=== PATIENT | female | born 1980 | race Caucasian/White ===

== ENCOUNTER 2017-05-08 15:22 | Emergency (ER) | payer SELFPAY ==
[~2017-05-08] VITALS: Ht 153.7 cm; Wt 65.9 kg
[2017-05-08 15:23] VITALS: BP 122/76; PULSE 124; RESP 19; TEMP 97.9; O2SAT 99
[2017-05-08 17:06] LABS: AUTOMATED NEUTROPHIL # 8.3 TH/MM3 (1.8-7.7); BASOPHIL # 0.1 TH/MM3 (0-0.2); BASOPHIL % 0.7 % (0.0-2.0); EOSINOPHIL % 0.3 % (0.0-4.0); HEMATOCRIT 38.7 % (35.0-46.0); HEMOGLOBIN 13.5 GM/DL (11.6-15.3); LYMPH % 3.3 % (9.0-44.0); LYMPHOCYTE # 0.3 TH/MM3 (1.0-4.8); MEAN CELL VOLUME 93.4 FL (80.0-100.0); MEAN CORPUSCULAR HEMOGLOBIN 32.6 PG (27.0-34.0); MEAN CORPUSCULAR HGB CONC 34.9 % (32.0-36.0); MEAN PLATELET VOLUME 8.3 FL (7.0-11.0); MONOCYTE # 0.8 TH/MM3 (0-0.9); NEUT % 87.7 % (16.0-70.0); PLATELET COUNT 159 TH/MM3 (150-450); RED BLOOD COUNT 4.14 MIL/MM3 (4.00-5.30); RED CELL DISTRIBUTION WIDTH 12.6 % (11.6-17.2); WHITE BLOOD COUNT 9.5 TH/MM3 (4.0-11.0)
[2017-05-08 17:22] LABS: ALBUMIN 3.4 GM/DL (3.4-5.0); ALT (GPT) 28 U/L (10-53); AST (GOT) 21 U/L (15-37); BICARBONATE 25.2 MEQ/L (21.0-32.0); BLOOD UREA NITROGEN 8 MG/DL (7-18); CALCIUM 7.9 MG/DL (8.5-10.1); CHLORIDE 103 MEQ/L (98-107); CREATININE 0.78 MG/DL (0.50-1.00); GLOMERULAR FILTRATION RATE 83 ML/MIN (>89); GLUCOSE,RANDOM 104 MG/DL (74-106); LIPASE 36 U/L (73-393); SODIUM (NA) 135 MEQ/L (136-145)
[2017-05-08 17:24] LABS: ALKALINE PHOSPHATASE 115 U/L (45-117); TOTAL BILIRUBIN ADULT 0.4 MG/DL (0.2-1.0); TOTAL PROTEIN 7.3 GM/DL (6.4-8.2)
[2017-05-08 17:37] LABS: BACTERIA, URINE FEW /hpf; BILIRUBIN, URINE NEG (NEG); BLOOD, URINE SMALL (NEG); GLUCOSE,URINE NEG (NEG); KETONE, URINE TRACE mg/dL (NEG); NITRITE,URINE NEG (NEG); SQUAMOUS EPITHELIAL CELL URINE 7 /hpf (0-5); URINE COLOR YELLOW (YELLW/STRAW); URINE LEUKOCYTE ESTERASE MOD (NEG)
[2017-05-08] MEDS ORDERED: SODIUM CHLOR 0.9% 1000 ML INJ 1,000 ML IV SCH (18:51)
[2017-05-08] MEDS ORDERED: CIPR-9 PO (18:58)
[2017-05-08] MEDS ORDERED: OSEL75 PO (18:58)
[2017-05-08] MEDS ORDERED: ZOFR4TAB3 SL (18:58)
--- NOTE | 2017-05-08 18:58 | PD ---
HPI Chief Complaint: Cold / Flu Symptoms Time Seen by Provider: 18:46 Travel History International Travel<30 days: No Contact w/Intl Traveler<30days: No Traveled to known affect area: No History of Present Illness HPI The patient is a 37-year-old female who presents emergency department for cough and cold symptoms that started on Sunday. The patient states she developed a headache on Sunday, that she admitted to her migraines. She then developed body aches, low back pain, fever, chills, sweats, amylase on Sunday. The patient does complain of intermittent left flank pain associated with her symptoms as well as nausea and vomiting without any diarrhea. Her last menstrual cycle was one week ago. Symptoms are moderate without any alleviating or exacerbating factors. She denies any chest pain, shortness of breath, or cough. She did not receive an influenza vaccination this year. She does not currently have a primary physician. [facility] Past Medical History Medical History: Denies Significant Hx Inguinal Hernia: Yes ?: Not LMP: 05/08/2017 Past Surgical History Abdominal Surgery: Yes (hernia repair) Section: Yes Social History Alcohol Use: Yes (socially) Tobacco Use: Yes (pack) Substance Use: No Allergies-Medications (Allergen,Severity, Reaction): Coded Allergies: Penicillins (Verified Allergy, Severe, 05/08/17) Reported Meds & Prescriptions Reported Meds & Active Scripts Active Zofran Odt (Ondansetron Odt) 4 Mg Tab 4 Mg SL Q6HR PRN Tamiflu (Oseltamivir Phosphate) 75 Mg Cap 75 Mg PO BID 5 Days Cipro (Ciprofloxacin HCl) 500 Mg Tab 500 Mg PO BID 7 Days Review of Systems Except as stated in HPI: all other systems reviewed are Neg General / Constitutional: Positive: Fever, Chills HENT: Positive: Headaches, No: Congestion Cardiovascular: No: Chest Pain or Discomfort Respiratory: No: Cough, Shortness of Breath Gastrointestinal: Positive: Nausea, Vomiting, No: Diarrhea Genitourinary: Positive: Flank Pain, No: Urgency, Frequency, Dysuria, Hematuria Musculoskeletal: Positive: Myalgias Physical Exam Narrative GENERAL: Awake, alert, pleasant 37 year-old female who appears her stated age and is in no acute respiratory distress. SKIN: Focused skin assessment warm/dry. HEAD: Atraumatic. Normocephalic. EYES: Pupils equal and round. No scleral icterus. No injection or drainage. ENT: No nasal bleeding or discharge. Mucous membranes pink and moist. NECK: Trachea midline. No JVD. CARDIOVASCULAR: Regular, tachycardic with a heart rate of 110. RESPIRATORY: No accessory muscle use. Clear to auscultation. Breath sounds equal bilaterally. GASTROINTESTINAL: Abdomen soft, non-tender, nondistended. No guarding or rigidity. Back: No CVA tenderness. Mild left flank tenderness. MUSCULOSKELETAL: No obvious deformities. No clubbing. No cyanosis. No edema. NEUROLOGICAL: Awake and alert. No obvious cranial nerve deficits. Motor grossly within normal limits. Normal speech. PSYCHIATRIC: Appropriate mood and affect; insight and judgment normal. Data Data Last Documented VS Vital Signs Date Time Temp Pulse Resp B/P (MAP) Pulse Ox O2 Delivery O2 Flow Rate FiO2 05/08/17 19:10 106 20 114/71 (85) 97 Room Air 05/08/17 15:23 97.9 Orders Orders Complete Blood Count With Diff (05/08/17 15:45) Comprehensive Metabolic Panel (05/08/17 15:45) Lipase (05/08/17 15:45) Urinalysis - C+S If Indicated (05/08/17 15:45) Ed Urine Pregnancytest Poc (05/08/17 15:45) Influenzae A/B Antigen (05/08/17 15:45) Urine Culture (05/08/17 16:51) Iv Access Insert/Monitor (05/08/17 18:51) Ecg Monitoring (05/08/17 18:51) Oximetry (05/08/17 18:51) Morphine Inj (Morphine Inj) (05/08/17 19:00) Ondansetron Inj (Zofran Inj) (05/08/17 19:00) Sodium Chlor 0.9% 1000 Ml Inj (Ns 1000 M (05/08/17 18:51) Sodium Chloride 0.9% Flush (Ns Flush) (05/08/17 19:00) Ketorolac Inj (Toradol Inj) (05/08/17 19:00) Sodium Chlor 0.9% 1000 Ml Inj (Ns 1000 M (05/08/17 19:00) Ciprofloxacin 400 Mg Premix (Cipro 400 M (05/08/17 19:00) Ed Discharge Order (05/08/17 20:09) Labs Laboratory Tests Test 05/08/17 16:43 05/08/17 16:51 White Blood Count 9.5 TH/MM3 Red Blood Count 4.14 MIL/MM3 Hemoglobin 13.5 GM/DL Hematocrit 38.7 % Mean Corpuscular Volume 93.4 FL Mean Corpuscular Hemoglobin 32.6 PG Mean Corpuscular Hemoglobin Concent 34.9 % Red Cell Distribution Width 12.6 % Platelet Count 159 TH/MM3 Mean Platelet Volume 8.3 FL Neutrophils (%) (Auto) 87.7 % Lymphocytes (%) (Auto) 3.3 % Monocytes (%) (Auto) 8.0 % Eosinophils (%) (Auto) 0.3 % Basophils (%) (Auto) 0.7 % Neutrophils # (Auto) 8.3 TH/MM3 Lymphocytes # (Auto) 0.3 TH/MM3 Monocytes # (Auto) 0.8 TH/MM3 Eosinophils # (Auto) 0.0 TH/MM3 Basophils # (Auto) 0.1 TH/MM3 CBC Comment DIFF FINAL Differential Comment Blood Urea Nitrogen 8 MG/DL Creatinine 0.78 MG/DL Random Glucose 104 MG/DL Total Protein 7.3 GM/DL Albumin 3.4 GM/DL Calcium Level 7.9 MG/DL Alkaline Phosphatase 115 U/L Aspartate Amino Transf (AST/SGOT) 21 U/L Alanine Aminotransferase (ALT/SGPT) 28 U/L Total Bilirubin 0.4 MG/DL Sodium Level 135 MEQ/L Potassium Level 3.7 MEQ/L Chloride Level 103 MEQ/L Carbon Dioxide Level 25.2 MEQ/L Anion Gap 7 MEQ/L Estimat Glomerular Filtration Rate 83 ML/MIN Lipase 36 U/L Urine Color YELLOW Urine Turbidity HAZY Urine pH 6.0 Urine Specific [place] 1.018 Urine Protein 100 mg/dL Urine Glucose (UA) NEG mg/dL Urine Ketones TRACE mg/dL Urine Occult Blood SMALL Urine Nitrite NEG Urine Bilirubin NEG Urine Urobilinogen LESS THAN 2.0 MG/DL Urine Leukocyte Esterase MOD Urine RBC 8 /hpf Urine WBC 28 /hpf Urine Squamous Epithelial Cells 7 /hpf Urine Bacteria FEW /hpf Microscopic Urinalysis Comment CULTURE INDICATED MDM Medical Decision Making Medical Screen Exam Complete: Yes Emergency Medical Condition: Yes Medical Record Reviewed: Yes Interpretation(s) Laboratory Tests Test 05/08/17 16:43 05/08/17 16:51 White Blood Count 9.5 TH/MM3 Red Blood Count 4.14 MIL/MM3 Hemoglobin 13.5 GM/DL Hematocrit 38.7 % Mean Corpuscular Volume 93.4 FL Mean Corpuscular Hemoglobin 32.6 PG Mean Corpuscular Hemoglobin Concent 34.9 % Red Cell Distribution Width 12.6 % Platelet Count 159 TH/MM3 Mean Platelet Volume 8.3 FL Neutrophils (%) (Auto) 87.7 % Lymphocytes (%) (Auto) 3.3 % Monocytes (%) (Auto) 8.0 % Eosinophils (%) (Auto) 0.3 % Basophils (%) (Auto) 0.7 % Neutrophils # (Auto) 8.3 TH/MM3 Lymphocytes # (Auto) 0.3 TH/MM3 Monocytes # (Auto) 0.8 TH/MM3 Eosinophils # (Auto) 0.0 TH/MM3 Basophils # (Auto) 0.1 TH/MM3 CBC Comment DIFF FINAL Differential Comment Blood Urea Nitrogen 8 MG/DL Creatinine 0.78 MG/DL Random Glucose 104 MG/DL Total Protein 7.3 GM/DL Albumin 3.4 GM/DL Calcium Level 7.9 MG/DL Alkaline Phosphatase 115 U/L Aspartate Amino Transf (AST/SGOT) 21 U/L Alanine Aminotransferase (ALT/SGPT) 28 U/L Total Bilirubin 0.4 MG/DL Sodium Level 135 MEQ/L Potassium Level 3.7 MEQ/L Chloride Level 103 MEQ/L Carbon Dioxide Level 25.2 MEQ/L Anion Gap 7 MEQ/L Estimat Glomerular Filtration Rate 83 ML/MIN Lipase 36 U/L Urine Color YELLOW Urine Turbidity HAZY Urine pH 6.0 Urine Specific [place] 1.018 Urine Protein 100 mg/dL Urine Glucose (UA) NEG mg/dL Urine Ketones TRACE mg/dL Urine Occult Blood SMALL Urine Nitrite NEG Urine Bilirubin NEG Urine Urobilinogen LESS THAN 2.0 MG/DL Urine Leukocyte Esterase MOD Urine RBC 8 /hpf Urine WBC 28 /hpf Urine Squamous Epithelial Cells 7 /hpf Urine Bacteria FEW /hpf Microscopic Urinalysis Comment CULTURE INDICATED Date/Time Source Procedure Growth Status 05/08/17 16:44 Nasal Aspirate Influenza Types A,B Antigen (KOJO) - Final Positive For Flu A Antigen Complete 05/08/17 16:51 Urine Clean Catch Urine Culture Pending Received Differential Diagnosis Differential diagnosis includes influenza, pyelonephritis, dehydration, electrolyte abnormality, viral syndrome, pneumonia, UTI, diverticulitis. Narrative Course Protocol labs were performed in triage. The patient's white count and LFTs are unremarkable. UA is positive for infection and influenza screen was positive for influenza A. I evaluated the patient, an IV was established, the patient was administered morphine, Toradol, Zofran, and Cipro intravenously. The patient was reevaluated at 8:10 PM. Her pain was down to 3/10. She was tolerating oral intake without difficulty. Her symptoms have significantly improved. The patient will be discharged home on Tamiflu, Cipro, and Zofran as needed. Work excuse for 3 days. She is advised to return if symptoms worsen or progress. Diagnosis Primary Impression: Influenza A Additional Impression: Pyelonephritis Patient Instructions: General Instructions Additional Instructions: Medications as directed. Work excuse for 3 days. Plenty of fluids to stay hydrated. Return if symptoms worsen or progress. Please provide a patient a copy of her labs and flu results at discharge. Med/Other Pt SpecificInfo: Prescription(s) given Scripts Ondansetron Odt (Zofran Odt) 4 Mg Tab 4 MG SL Q6HR Y for Nausea/Vomiting, #10 TAB 0 Refills Prov: Fernie Orellana MD 05/08/17 Oseltamivir (Tamiflu) 75 Mg Cap 75 MG PO BID for Mgmt Viral Infection for 5 Days, #10 CAP 0 Refills Prov: Fernie Orellana MD 05/08/17 Ciprofloxacin (Cipro) 500 Mg Tab 500 MG PO BID for Infection for 7 Days, #14 TAB 0 Refills Prov: Fernie Orellana MD 05/08/17 Disposition: DISCHARGE HOME Condition: Stable Fernie Orellana MD May 08, 2017 18:58
[2017-05-08] MEDS ORDERED: KETOROLAC TROMETHAMINE 30 MG/ML (IVP) VIAL IVP ONE (19:00)
[2017-05-08] MEDS ORDERED: MORPHINE SULFATE 4 MG/ML INJ IV PUSH ONE (19:00)
[2017-05-08] MEDS ORDERED: SODIUM CHLORIDE 0.9% FLUSH 10 ML FLUSH IV FLUSH PRN (19:00)
[2017-05-08] MEDS ORDERED: CIPROFLOXACIN 400 MG PREMIX 200 ML IV ONE (19:00)
[2017-05-08] MEDS ORDERED: SODIUM CHLOR 0.9% 1000 ML INJ 1,000 ML IV ONE (19:00)
[2017-05-08] MEDS ORDERED: ONDANSETRON HCL 4 MG/2 ML VIAL IVP ONE (19:00)
[2017-05-08 19:10] VITALS: BP 114/71; PULSE 106; RESP 20; O2SAT 97
[2017-05-08 20:09] VITALS: BP 101/66
[2017-05-08 20:15] VITALS: RESP 20
== END 2017-05-08 20:51 | disposition home or self-care (01) ==
LOC: NEPE 15:22
DX: J10.1 Influenza due to other identified influenza virus with other respiratory manifestations (principal); N12 Tubulo-interstitial nephritis, not specified as acute or chronic; B96.20 Unspecified Escherichia coli [E. coli] as the cause of diseases classified elsewhere; Z72.0 Tobacco use
CPT/HCPCS: 80053; 81001; 83690; 84703; 85025; 87077; 87086; 87186; 87804; 96365; 96375; 99284; J0744; J1885; J2270; J2405; J7030

== ENCOUNTER 2017-09-05 10:50 | Emergency (ER) | payer SELFPAY ==
[~2017-09-05] VITALS: Ht 152.4 cm; Wt 65.0 kg
[~2017-09-05 10:50] MED LIST: CIPR-9 PO; OSEL75 PO; ZOFR4TAB3 SL
[2017-09-05 11:01] VITALS: BP 119/64; PULSE 100; RESP 18; TEMP 98.8; O2SAT 97
[2017-09-05] MEDS ORDERED: CEPH-460 PO (11:30)
[2017-09-05] MEDS ORDERED: PRED20 PO (11:30)
[2017-09-05] MEDS ORDERED: MUPI2OIN TOPICAL (11:30)
[2017-09-05] MEDS ORDERED: TRIA.1%T TOPICAL (11:30)
--- NOTE | 2017-09-05 11:31 | PD ---
HPI Chief Complaint: Skin Problem Time Seen by Provider: 11:21 Travel History International Travel<30 days: No Contact w/Intl Traveler<30days: No Traveled to known affect area: No History of Present Illness HPI 37-year-old female presents to the emergency department for evaluation of an itchy rash to her bilateral lower extremities that started after she went camping over the weekend. She has been itching them and also notices some pain to some of the areas. No fevers or chills. She has no chronic medical problems and takes no prescribed medications. Mild severity. PFSH Past Medical History Inguinal Hernia: Yes Past Surgical History Abdominal Surgery: Yes (hernia repair) Section: Yes Social History Alcohol Use: Yes (socially) Tobacco Use: Yes (pack) Substance Use: No Allergies-Medications (Allergen,Severity, Reaction): Coded Allergies: Penicillins (Verified Allergy, Severe, 09/05/17) Reported Meds & Prescriptions Reported Meds & Active Scripts Active Prednisone 20 Mg Tab 40 Mg PO DAILY Take 40 mg (2 tablets) daily for 5 days Keflex (Cephalexin) 500 Mg Capsule 500 Mg PO Q6H 10 Days Triamcinolone Topical (Triamcinolone Acetonide) 0.1% Cream 1 Applic TOPICAL BID Mupirocin Topical (Mupirocin) 2 % Oint 1 Applic TOPICAL BID Zofran Odt (Ondansetron Odt) 4 Mg Tab 4 Mg SL Q6HR PRN Tamiflu (Oseltamivir Phosphate) 75 Mg Cap 75 Mg PO BID 5 Days Cipro (Ciprofloxacin HCl) 500 Mg Tab 500 Mg PO BID 7 Days Review of Systems Except as stated in HPI: all other systems reviewed are Neg Physical Exam Narrative GENERAL: Well-nourished, well-developed female patient, ambulatory. Afebrile. SKIN: Focused skin assessment warm/dry. Patient has multiple papules to bilateral lower extremities consistent with insect bites. She does have some of these that appear to be infected with some mild surrounding erythema and excoriation. HEAD: Normocephalic. Atraumatic. EYES: No scleral icterus. No injection or drainage. NECK: Supple, trachea midline. No JVD or lymphadenopathy. CARDIOVASCULAR: Regular rate and rhythm without murmurs, gallops, or rubs. RESPIRATORY: Breath sounds equal bilaterally. No accessory muscle use. Lung sounds are clear to auscultation. MUSCULOSKELETAL: No cyanosis, or edema. Data Data Last Documented VS Vital Signs Date Time Temp Pulse Resp B/P (MAP) Pulse Ox O2 Delivery O2 Flow Rate FiO2 09/05/17 11:01 98.8 100 18 119/64 (82) 97 Orders Orders Ed Discharge Order (09/05/17 11:31) Cephalexin (Keflex) (09/05/17 11:45) Diphenhydramine (Benadryl) (09/05/17 11:45) MDM Medical Decision Making Medical Screen Exam Complete: Yes Emergency Medical Condition: Yes Medical Record Reviewed: Yes Differential Diagnosis Insect bite versus cellulitis versus acute rash Narrative Course 37-year-old female presents to the emergency department for evaluation of rash to her bilateral lower extremities. Physical exam is consistent with insect bites and some overlying cellulitis. Patient is given first dose of Keflex and Benadryl in the emergency department. She will be discharged prescription for prednisone, Keflex, triamcinolone cream, mupirocin cream. The patient was discharged in stable condition with instructions, including return instructions and follow up instructions. Diagnosis Primary Impression: Insect bite Qualified Codes: W57.XXXA - Bitten or stung by nonvenomous insect and other nonvenomous arthropods, initial encounter Additional Impression: Cellulitis Qualified Codes: L03.119 - Cellulitis of unspecified part of limb Referrals: Primary Care Physician call for appointment Patient Instructions: General Instructions, Insect Bite or Sting (ED) Additional Instructions: Use mupirocin cream on infected bites. Use triamcinolone on all other insect bites. Take antibiotic as directed until gone. Take prednisone as directed. [id number] Benadryl 25-50 mg every 6-8 hours as needed for itching. Follow-up with a primary care physician. Return to the emergency department for any acute worsening of symptoms. Med/Other Pt SpecificInfo: Prescription(s) given Scripts Prednisone (Prednisone) 20 Mg Tab 40 MG PO DAILY, #10 TAB 0 Refills Take 40 mg (2 tablets) daily for 5 days Prov: Jennifer Gomez 09/05/17 Cephalexin (Keflex) 500 Mg Capsule 500 MG PO Q6H for Infection for 10 Days, #40 CAP 0 Refills Prov: Jennifer Gomez 09/05/17 Triamcinolone Topical (Triamcinolone Topical) 0.1% Cream 1 APPLIC TOPICAL BID for Inflammation, #1 TUBE 0 Refills Prov: Jennifer Gomez 09/05/17 Mupirocin Topical (Mupirocin Topical) 2 % Oint 1 APPLIC TOPICAL BID for Mgmt Bacterial Infection, #22 GM 0 Refills Prov: Jennifer Gomez 09/05/17 Disposition: 01 DISCHARGE HOME Condition: Stable Jennifer Gomez September 05, 2017 11:31
[2017-09-05] MEDS ORDERED: CEPHALEXIN MONOHYDRATE 500 MG CAP PO ONE (11:45)
[2017-09-05] MEDS ORDERED: diphenhydrAMINE HCL 25 MG CAP PO ONE (11:45)
== END 2017-09-05 11:52 | disposition home or self-care (01) ==
LOC: NEPD 10:50
DX: S80.862A Insect bite (nonvenomous), left lower leg, initial encounter (principal); S80.861A Insect bite (nonvenomous), right lower leg, initial encounter; L03.116 Cellulitis of left lower limb; L03.115 Cellulitis of right lower limb; W57.XXXA Bitten or stung by nonvenomous insect and other nonvenomous arthropods, initial encounter
CPT/HCPCS: 99283

== ENCOUNTER 2017-09-19 14:27 | Emergency (ER) | payer SELFPAY ==
[~2017-09-19] VITALS: Ht 154.9 cm; Wt 56.8 kg
[~2017-09-19 14:27] MED LIST changes: +CEPH-460 PO; +MUPI2OIN TOPICAL; +PRED20 PO; +TRIA.1%T TOPICAL
[2017-09-19 14:36] VITALS: BP 116/73; PULSE 95; RESP 16; TEMP 98.3; O2SAT 98
[2017-09-19] MEDS ORDERED: BACT800T5 PO (15:30)
--- NOTE | 2017-09-19 15:31 | PD ---
HPI Chief Complaint: Skin Problem Time Seen by Provider: 14:58 Travel History International Travel<30 days: No Contact w/Intl Traveler<30days: No Traveled to known affect area: No History of Present Illness HPI 37-year-old female here for reevaluation of insect bites to her extremities. She was recently seen and placed on Keflex, steroid cream, Benadryl. She reports some of the areas improved but others have worsened. No fever chills. Reports she continues to get insect bites as she is homeless and either sleeps in the silva or a friend's house who has known bedbugs. Denies any other medical complaint. Symptom severity is mild to moderate. PFSH Past Medical History Diminished Hearing: No Inguinal Hernia: Yes Tetanus Vaccination: Unknown ?: Unknown LMP: 2 weeks ago Past Surgical History Abdominal Surgery: Yes (hernia repair) Section: Yes Social History Alcohol Use: Yes (socially) Tobacco Use: Yes (pack) Substance Use: No Allergies-Medications (Allergen,Severity, Reaction): Coded Allergies: Penicillins (Verified Allergy, Severe, 09/19/17) cefaclor (Verified Allergy, Intermediate, muscles weskness, 09/19/17) Reported Meds & Prescriptions Reported Meds & Active Scripts Active No Active Prescriptions or Reported Medications Review of Systems Except as stated in HPI: all other systems reviewed are Neg General / Constitutional: No: Fever Eyes: No: Visual changes HENT: No: Headaches Cardiovascular: No: Chest Pain or Discomfort Respiratory: No: Shortness of Breath Gastrointestinal: No: Abdominal Pain Genitourinary: No: Dysuria Skin: Positive Rash Physical Exam Narrative GENERAL: Alert and well-appearing 37-year-old female SKIN: Warm and dry. Multiple insect bites in various stages of healing to the upper and lower extremities. Several areas appear to be early abscesses none of which are fluctuant or ready for drainage. No surrounding cellulitis. HEAD: Normocephalic. EYES: No injection or drainage. NECK: Supple, trachea midline. No lymphadenopathy. CARDIOVASCULAR: Regular rate and rhythm without murmurs, gallops, or rubs. RESPIRATORY: Breath sounds equal bilaterally. No accessory muscle use. GASTROINTESTINAL: Abdomen soft, non-tender, nondistended. MUSCULOSKELETAL: No cyanosis, or edema. BACK: Nontender without obvious deformity. No CVA tenderness. Data Data Last Documented VS Vital Signs Date Time Temp Pulse Resp B/P (MAP) Pulse Ox O2 Delivery O2 Flow Rate FiO2 09/19/17 14:36 98.3 95 16 116/73 (87) 98 MDM Medical Decision Making Medical Screen Exam Complete: Yes Emergency Medical Condition: Yes Differential Diagnosis Insect bites, abscess, cellulitis Narrative Course 37-year-old female here with multiple insect bites a few of which are concerning for early abscess formation. She is nontoxic appearing. She will be treated with Bactrim. Diagnosis Primary Impression: Skin infection Additional Impression: Insect bite Qualified Codes: W57.XXXA - Bitten or stung by nonvenomous insect and other nonvenomous arthropods, initial encounter Referrals: [facility] Departure Forms: Tests/Procedures, Work Release Enter return to work date: Sep 20, 2017 Additional Instructions: Medication as directed. Continue Benadryl as needed for itching. Scripts Sulfamethoxazole-Trimethoprim (Bactrim DS) 800-160 Mg Tab 1 TAB PO BID for Infection, #20 TAB 0 Refills Prov: Jillian Williamson 09/19/17 Disposition: 01 DISCHARGE HOME Condition: Stable Jillian Williamson Sep 19, 2017 15:31
== END 2017-09-19 15:45 | disposition home or self-care (01) ==
LOC: PHEFT 14:27
DX: L08.9 Local infection of the skin and subcutaneous tissue, unspecified (principal); S40.862A Insect bite (nonvenomous) of left upper arm, initial encounter; S40.861A Insect bite (nonvenomous) of right upper arm, initial encounter; S80.862A Insect bite (nonvenomous), left lower leg, initial encounter; S80.861A Insect bite (nonvenomous), right lower leg, initial encounter; F17.200 Nicotine dependence, unspecified, uncomplicated; Z88.0 Allergy status to penicillin; Z88.1 Allergy status to other antibiotic agents; Z59.0 Homelessness; W57.XXXA Bitten or stung by nonvenomous insect and other nonvenomous arthropods, initial encounter
CPT/HCPCS: 99283